=== PATIENT | male | born 1985 | race Caucasian/White ===

== ENCOUNTER 2019-09-04 09:42 | Emergency (ER) | payer MEDICAID, SELFPAY ==
[~2019-09-04] VITALS: Ht 188 cm; Wt 72.7 kg
[2019-09-04 10:44] LABS: BASO # 0.1 10^3/uL (0.0-0.2); BASO % 0.8 % (0.0-1.0); EOS # 0.1 10^3/uL (0.0-0.5); EOS % 1.4 % (0.0-3.0); HEMATOCRIT 45.8 % (42.0-52.0); HEMOGLOBIN 15.7 g/dl (13.5-17.5); LYMPH # 2.3 10^3/uL (1.5-5.0); LYMPH % 34.8 % (24.0-44.0); MEAN CORPUSCULAR HEMOGLOBIN 32.4 pg (27.0-33.0); MEAN CORPUSCULAR HGB CONC 34.3 g/dl (32.0-36.5); MEAN CORPUSCULAR VOLUME 94.4 fl (80.0-96.0); MONO # 0.6 10^3/uL (0.0-0.8); MONO % 8.6 % (0.0-5.0); NEUTROPHILS # 3.5 10^3/uL (1.5-8.5); NEUTROPHILS % 54.1 % (36.0-66.0); PLATELET COUNT, AUTOMATED 217 10^3/uL (150-450); RED BLOOD COUNT 4.85 10^6/uL (4.30-6.10); WHITE BLOOD COUNT 6.5 10^3/uL (4.0-10.0)
[2019-09-04 11:08] LABS: ALBUMIN 4.3 GM/DL (3.2-5.2); ALT/SGPT 17 U/L (12-78); BILIRUBIN,DIRECT 0.1 MG/DL (0.0-0.2); BILIRUBIN,TOTAL 0.3 MG/DL (0.2-1.0); BLOOD UREA NITROGEN 7 MG/DL (7-18); CALCIUM LEVEL 9.2 MG/DL (8.5-10.1); CARBON DIOXIDE LEVEL 26 MEQ/L (21-32); CHLORIDE LEVEL 106 MEQ/L (98-107); CREATININE FOR GFR 0.94 MG/DL (0.70-1.30); GLOMERULAR FILTRATION RATE > 60.0 (>60); GLUCOSE, FASTING 86 MG/DL (70-100); LIPASE 106 U/L (73-393); POTASSIUM SERUM 4.2 MEQ/L (3.5-5.1); SODIUM LEVEL 140 MEQ/L (136-145); TOTAL PROTEIN 7.6 GM/DL (6.4-8.2)
[2019-09-04] MEDS ORDERED: KETOROLAC 30 MG/ML VIAL (J1885) IV ONE (11:30)
[2019-09-04] MEDS ORDERED: ISOVUE-370 76% 100ML VIAL (Q9967) As Ordered ONE (11:44)
[2019-09-04] MEDS ORDERED: NS 1,000 ML IV ONE (11:45)
[2019-09-04 11:46] LABS: CK-MB VALUE MASS < 1.0 NG/ML (<3.6); CPK CREATINE PHOSPHOKINASE 128 U/L (39-308); MB/CK RELATIVE INDEX 0.78 (< OR =4); TROPONIN I < 0.02 NG/ML (< 0.10)
--- NOTE | 2019-09-04 12:26 | REP ---
CT ABDOMEN AND PELVIS WITH IV BUT WITHOUT ORAL CONTRAST: HISTORY: Diffuse abdominal pain with guarding. No comparison study. CT CONTRAST DOSE: 100 mL of intravenous Isovue 370. CT FINDINGS: Digital preliminary insurance specialist radiograph is unremarkable. Bowel gas pattern shows normal colonic loops. The axial CT images demonstrate no infiltrate in the lung hogan. There is linear plate-like atelectasis in the right lower lobe posteriorly. A moderate pectus excavatum deformity is seen. The liver is normal in size homogeneous in texture. The spleen is unremarkable. No adrenal lesion is seen on either side. No abnormality is noted in the pancreas or in the gallbladder. No retroperitoneal mass or adenopathy is seen. The kidneys enhance symmetrically and are morphologically intact. A normal appendix is noted in the right lower quadrant without appendiceal inflammation changes. Prostate, seminal vesicles, and urinary bladder are unremarkable. No abdominal wall defect is seen. Small and large bowel loops are normal in caliber. There is air and fluid content in the distal small bowel and in the colon with only a small quantity of formed stool in the ascending colon. Question enteritis. No free air or abscess. IMPRESSION: Predominately liquid content in the bowel question enteritis. Normal appendix. Otherwise negative CT study abdomen and pelvis. Electronically Signed by Trev Ohara MD 09/04/2019 01:11 P
[2019-09-04 14:19] LABS: CHLAMYDIA DNA AMPLIFICATION NEGATIVE (NEGATIVE); GC DNA AMPLIFICATION NEGATIVE (NEGATIVE)
[2019-09-04 15:21] LABS: AMPHETAMINES LEVEL URINE NEGATIVE (NEGATIVE); BARBITURATES URINE NEGATIVE (NEGATIVE); BENZODIAZEPINES URINE NEGATIVE (NEGATIVE); CANNABINOIDS URINE POSITIVE (NEGATIVE); COCAINE METABOLITE URINE NEGATIVE (NEGATIVE); METHADONE URINE NEGATIVE (NEGATIVE); OPIATES URINE NEGATIVE (NEGATIVE); PHENCYCLIDINE URINE NEGATIVE (NEGATIVE)
[2019-09-04] MEDS ORDERED: AUGM875T28 PO (15:46)
[2019-09-04 15:57] VITALS: BP 150/95
== END 2019-09-04 16:04 | disposition home or self-care (01) ==
LOC: M ED 11:03
DX: K52.9 Noninfective gastroenteritis and colitis, unspecified (principal); R42 Dizziness and giddiness; Z87.442 Personal history of urinary calculi; F17.210 Nicotine dependence, cigarettes, uncomplicated
CPT/HCPCS: 74177; 80048; 80076; 80307; 81001; 82550; 82553; 83690; 84484; 85025; 87661; 96361; 96374; 99284; J1885; Q9967

== ENCOUNTER 2019-10-10 08:27 | Day surgery (SDC) | payer OTHER ==
[~2019-10-10] VITALS: Ht 188 cm; Wt 70.7 kg
[~2019-10-10 08:27] MED LIST: AUGM875T28 PO; NS 1,000 ML IV ONE
[2019-10-10] MEDS ORDERED: propofoL 200 MG/20 ML VIAL As Ordered ONE ×3 (10:23→10:40)
[2019-10-10 11:19] VITALS: BP 116/80
--- NOTE | 2019-10-10 15:34 | ROOR ---
Patient Name: Kirit Knight Procedure Date: 10/10/2019 10:22 AM Date of : 1985 Age: 34 Room: [id number] Gender: Male Note Status: Finalized Procedure: Colonoscopy Indications: Rectal pain Providers: Glenn Steven DO Referring MD: 1. No Referring Physician 1. No Referring Physician, Admin. Requesting Provider: Medicines: Propofol per Anesthesia Complications: No immediate complications. Procedure: Pre-Anesthesia Assessment: - Prior to the procedure, a History and Physical was performed, and patient medications and allergies were reviewed. The patient is competent. The risks and benefits of the procedure and the sedation options and risks were discussed with the patient. All questions were answered and informed consent was obtained. Patient identification and proposed procedure were verified by the physician, the nurse, the anesthesiologist and the refractory technician in the endoscopy suite. Mental Status Examination: alert and oriented. Airway Examination: normal oropharyngeal airway and neck mobility. Respiratory Examination: clear to auscultation. CV Examination: normal. Prophylactic Antibiotics: The patient does not require prophylactic antibiotics. Prior Anticoagulants: The patient has taken no previous anticoagulant or antiplatelet agents. ASA Grade Assessment: II - A patient with mild systemic disease. After reviewing the risks and benefits, the patient was deemed in satisfactory condition to undergo the procedure. The anesthesia plan was to use monitored anesthesia care (MAC). Immediately prior to administration of medications, the patient was re-assessed for adequacy to receive sedatives. The heart rate, respiratory rate, oxygen saturations, blood pressure, adequacy of pulmonary ventilation, and response to care were monitored throughout the procedure. The physical status of the patient was re-assessed after the procedure. The Colonoscope was introduced through the anus and advanced to the cecum, identified by the appendiceal orifice, ileocecal valve and palpation. The colonoscopy was performed without difficulty. The patient tolerated the procedure well. Findings: The colon (entire examined portion) was moderately tortuous. Non-bleeding internal hemorrhoids were found during endoscopy. The hemorrhoids were mild and Grade II (internal hemorrhoids that prolapse but reduce spontaneously). The exam was otherwise without abnormality on direct and retroflexion views. Impression: - Tortuous colon. - Non-bleeding internal hemorrhoids. - The examination was otherwise normal on direct and retroflexion views. - No specimens collected. Recommendation: - Patient has a contact number available for emergencies. The signs and symptoms of potential delayed complications were discussed with the patient. Return to normal activities tomorrow. Written discharge instructions were provided to the patient. - Repeat colonoscopy at age 48 for screening purposes. - Return to my office PRN. Glenn Steven DO 10/10/2019 10:46:07 AM Electronically signed by Glenn Steven DO Number of Addenda: 0 Note Initiated On: 10/10/2019 10:22 AM Estimated Blood Loss: Estimated blood loss: none.
== END 2019-10-10 11:21 | disposition home or self-care (01) ==
LOC: M OPP 08:27
PROVIDERS: ATTEND Surgery
DX: K64.1 Second degree hemorrhoids (principal); Q43.8 Other specified congenital malformations of intestine; K62.89 Other specified diseases of anus and rectum; F17.210 Nicotine dependence, cigarettes, uncomplicated

== ENCOUNTER 2022-06-29 09:23 | Emergency (ER) | payer OTHER ==
[~2022-06-29] VITALS: Ht 185.4 cm; Wt 71.8 kg
[2022-06-29 09:23] VITALS: BP 144/81
[~2022-06-29 09:23] MED LIST changes: -NS 1,000 ML IV ONE
== END 2022-06-29 11:20 | disposition left against medical advice (07) ==
LOC: M ED 09:23
DX: Z53.21 Procedure and treatment not carried out due to patient leaving prior to being seen by health care provider (principal)